=== PATIENT | male | born 2000 | race Caucasian/White ===

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

== ENCOUNTER → 2018-01-02 10:34 | Outpatient (CLI) | payer BC, SELFPAY ==
[2018-01-02 11:50] LABS: Anion Gap 5 (5-15); BUN 13 mg/dL (7-18); BUN/Creat Ratio 14.9 RATIO (10-20); Calcium,Total 8.7 mg/dL (8.5-10.1); Chloride 104 mmol/L (98-107); Cholesterol 138 mg/dL (200); Creatinine, Serum 0.87 mg/dL (0.70-1.30); EST Glomerular Filtration Rate 119 mL/min (>60); Est Glom Filt Rate - Afr Amer 144 mL/min (>60); Glucose 227 mg/dL (74-106); High Density Lipoprotein 53 mg/dL; Potassium 3.9 mmol/L (3.5-5.1); Sodium Level 137 mmol/L (136-145); Triglycerides 41 mg/dL; Very Low Density Lipoprotein 8 mg/dL (5-40)
== END ==
PROVIDERS: Family Provider Family Medicine; PCP Family Medicine; Referring Provider Family Medicine; Visit Provider Family Medicine
DX: E11.9 Type 2 diabetes mellitus without complications (principal)
CPT/HCPCS: 36415; 80048; 80061

== ENCOUNTER 2018-02-18 16:30 | Outpatient (RCR) | payer BC, SELFPAY | END 2018-02-18 23:59 | LOC: DC 16:30 | PROVIDERS: Family Provider Family Medicine; PCP Family Medicine; Visit Provider Family Medicine | DX: E11.9 Type 2 diabetes mellitus without complications (principal); Z71.3 Dietary counseling and surveillance | CPT/HCPCS: 97802; G0108 ==

== ENCOUNTER 2019-08-30 22:10 | Emergency (ER) | payer BC, SELFPAY ==
[2019-08-30 22:11] VITALS: BP 136/77; PULSE 97; RESP 16; TEMP 37.2; O2SAT 98; BMI 26.6
--- NOTE | 2019-08-30 22:33 | ED.DCSUM_ITS ---
- ER Visit Summary Date of Service: 08/30/19 Chief Complaint: Foot injury while playing basketball History of Present Illness: The patient is a 18 M has medical history of insulin-dependent diabetes. Patient states his pain vascular around 430 this afternoon. He was getting a rebound and came down landed on another player's foot. Then went to the ground. He was done playing at that time. He said he has trouble bearing weight on it. He is never had any significant injury to his foot or ankle. He is never had surgery. Denies any other injuries. Physical Examination: Young male no acute distress vital signs stable afebrile. H EENT exam unremarkable. Lungs are clear. Heart regular rhythm no murmur. Chest wall nontender. Abdomen soft nontender. Pelvic girdle intact. Patient is moving all 4 extremities. Neurovascularly intact. No gross bony deformities. Right hip, right knee and right ankle completely nontender nonswollen. Normal range of motion. Normal DP pulse. His right foot is mild swelling and tenderness to the distal third of the metatarsals. No gross bony deformity. He is able to wiggle his toes. Normal touch sensation. Skin is intact. Test Results: Foot x-ray 3 views read by myself fractures of the distal third of the second, third and fourth metatarsals. The third and fourth metatarsal fractures were displaced. I went over the x-ray with the patient. Emergency Department Course and Treatment: Patient has a right foot injury. Ice pack. He did not waiting for pain. Treatment Plan: Patient placed in a short leg well-padded Ortho-Glass posterior splint. No weightbearing. Tylenol Motrin for pain. Follow-up with Dr. Aristeo Bailon with podiatry. Disposition: Discharge Impression: Acute right foot second, third and fourth metatarsal fractures. Short leg posterior splint by ER This note was generated with [employer] dictation software. It may contain incorrect words, spelling, and punctuation that were not noted in review of the chart prior to signing ED Disposition - Plan for ED Patient: Referrals: Butch Macias MD [Primary Care Provider] -
--- NOTE | 2019-08-30 22:35 | RAD_ITS ---
STUDY: X-RAY - RIGHT FOOT CLINICAL: Male, 18 years old. BASKETBALL INJURY. PAIN ACROSS METATARSALS BOTH ANTERIORLY AND POSTERIORLY TECHNIQUE: 3 view(s) of the foot. COMPARISON: None. FINDINGS: Normal talus, calcaneus, and tarsal bones. Normal visualized subtalar, talonavicular, calcaneocuboid, tarsal and tarsometatarsal articulations. Fractures of the second third and fourth metatarsals with slight displacement. Normal metatarsophalangeal joint of the great toe. Normal tibial and fibular sesamoid bones. Normal interphalangeal joint of the great toe. Normal phalanges of the great toe. Normal second through fifth metatarsophalangeal joints. Normal interphalangeal joints and phalanges of the lesser toes. The soft tissue structures are unremarkable. RAD/Foot min 3 Views IMPRESSION: Fractures of the second third and fourth metatarsals Electronically Signed: Davian Merida MD at 23:24 EDT , Service support ,
--- NOTE | 2019-08-30 23:03 | ED.DEP ---
ED Disposition - Plan for ED Patient: Disposition: Home or Assisted Living Instructions: ED FOOT FRACTURE Referrals: Magen Bailon DPM [STAFF PHYSICIAN] - As soon as possible Additional Instructions: Ice and elevate your right foot to decrease pain and swelling. No weightbearing. Crutches. The splint that I placed will not hold your weight. Follow-up with the systems development manager Dr. Magen Bailon. Their office either tomorrow or Saturday and they will get you in this week. Tylenol and Motrin for pain. You have fractures of your second, third and fourth metatarsals of your right foot.
[2019-08-30 23:19] VITALS: RESP 16
== END 2019-08-30 23:30 | disposition home or self-care (01) ==
LOC: ED 23:21
PROVIDERS: Emergency Provider Emergency Medicine; PCP Family Medicine
DX: S92.321A Displaced fracture of second metatarsal bone, right foot, initial encounter for closed fracture (principal); S92.331A Displaced fracture of third metatarsal bone, right foot, initial encounter for closed fracture; S92.341A Displaced fracture of fourth metatarsal bone, right foot, initial encounter for closed fracture; X58.XXXA Exposure to other specified factors, initial encounter; Y93.67 Activity, basketball; Y92.9 Unspecified place or not applicable; Y99.8 Other external cause status; E11.9 Type 2 diabetes mellitus without complications; Z79.4 Long term (current) use of insulin
CPT/HCPCS: 29515; 73630; 99283

== ENCOUNTER → 2019-09-03 09:58 | Outpatient (CLI) | payer BC, SELFPAY ==
[2019-08-30 22:11] VITALS: BMI 26.6
[2019-09-03 12:47] LABS: Absolute Neutrophil Count 4.2 X10^3/uL (2.0-7.7); Basophil# 0.09 X10^3/uL; Basophil% 1.2 % (0-1); Eosinophil# 0.37 X10^3/uL; Eosinophils% 4.9 % (0-5); Hematocrit 44.3 % (40-54); Hemoglobin 15.1 g/dL (13.0-16.5); Lymphocyte % 27.7 % (19-41); Mean Corp Hgb Conc 34.1 g/dL (32-36); Mean Corpuscular Hgb 29.5 pg (27.0-32.0); Mean Corpuscular Volume 86.5 fL (80-94); Mean Platelet Vol. 10.6 fl (6.2-12.0); Monocyte% 10.6 % (0-10); NRBC Flagged by Analyzer 0 % (0-5); Neutrophil % 55.5 % (47-70); Platelet Count 269 K/mm3 (150-450); RBC Distribution Width CV 12.5 % (11.6-14.6); RBC Distribution Width SD 38.9 fl (35.1-43.9); Red Blood Count 5.12 M/mm3 (4.6-6.2); White Blood Count 7.6 K/mm3 (4.4-11.0)
[2019-09-03 12:49] LABS: Anion Gap 7 (5-15); BUN 13 mg/dL (7-18); BUN/Creat Ratio 11.8 RATIO (10-20); Calcium,Total 8.9 mg/dL (8.5-10.1); Chloride 104 mmol/L (98-107); EST Glomerular Filtration Rate 90 mL/min (>60); Est Glom Filt Rate - Afr Amer 109 mL/min (>60); Glucose 241 mg/dL (74-106); Potassium 4.4 mmol/L (3.5-5.1); Sodium Level 137 mmol/L (136-145)
[2019-09-03 13:21] LABS: Hemoglobin A1c 5.2 % (3.8-5.6)
== END ==
PROVIDERS: PCP Family Medicine; Referring Provider Family Medicine; Visit Provider Family Medicine
DX: Z00.00 Encounter for general adult medical examination without abnormal findings (principal)
CPT/HCPCS: 36415; 80048; 83036; 85025

== ENCOUNTER 2019-09-07 11:28 | Day surgery (SDC) | payer BC, SELFPAY ==
[2019-09-07] VITALS (7 sets, daily range): BP systolic 134–146; BP diastolic 66–90; PULSE 62–86; RESP 14–16; TEMP 36.3–37.3; O2SAT 96–100; BMI 26.4
[2019-09-07] MEDS: Lactated Ringers 1,000 ML 100 ML IV (12:18)
[2019-09-07 12:25] LABS: Bedside Glucose 165 mg/dL (70-110)
--- NOTE | 2019-09-07 12:58 | DCINST_ITS ---
Discharge Diet: Light diet - advance as tolerated Discharge Activity: May Not Drive Weight Bearing Status: No weight bearing - No weightbearing right foot Keep extremity elevated above heart level: Right Leg - Keep right foot elevated for at least 50 minutes of every hour using pillows Call your doctor if your incision/area has: Continuous Slow Oozing, Sudden Increased Bleeding, Foul Smelling Discharge Call your doctor if you observe: Fever of 101 or Higher, Shortness of breath, Chest pain, Calf discomfort, Uncontrolled pain Cleanse incision/area with: Do not get Incision Wet, Keep Dressing Clean & Dry Additional Instructions: Apply ice pack to foot 10-15 minutes 3-4 times a day Allergies/Adverse Reactions: Allergies No Known Allergies Allergy (Verified 09/04/19 10:05) Medications to take at Discharge Insulin Lispro [Humalog KwikPen] 8 unit SC 0700 insuln.pen 12/27/17 Insulin Lispro [Humalog KwikPen] 16 unit SQ BID@1100,1600 #1 insuln.pen 12/27/17 Insulin Glargine [Lantus SoloStar Pen] 15 units SUBCUT DAILY 08/30/19 Hydrocodone Bitart/Apap 5-325 [[place] 5MG-325MG] 1 - 2 tab PO Q6H PRN PRN 3 Days #25 tab 09/07/19 Ibuprofen 600 mg PO Q6H #40 tab 09/07/19 The following prescriptions were given: Ibuprofen 600 mg PO Q6H #40 tab Transmission Status: Received by [facility] Hydrocodone Bitart/Apap 5-325 [[place]wood 5MG-325MG] 1 - 2 tab PO Q6H PRN PRN 3 Days #25 tab PRN Reason: Pain Transmission Status: Received by [facility] Primary Care Physician: Butch Macias MD [Primary Care Provider] - Test Results: Test results from this visit will be discussed in further detail at your follow- up appointment, if applicable. Please Follow Up With: Magen Bailon DPM When: 1 week, call or follow up sooner if needed
--- NOTE | 2019-09-07 13:00 | RAD_ITS ---
STUDY: X-RAY - RIGHT FOOT CLINICAL: Male, 18 years old. ORIF 3rd and 4th metatarsals, 2 intraoperative images TECHNIQUE: 3 view(s) of the foot. COMPARISON: None. FINDINGS: 3 images were submitted for interpretation. Images were obtained during third and fourth metatarsal pinning. Final image shows anatomic alignment. RAD/Foot 2 Views IMPRESSION: Intraoperative images obtained for hardware localization. Electronically Signed: Janis Hill MD at 23:59 EDT Tel , Service support ,
[2019-09-07] MEDS: Cefazolin 2 GM in 0.9% Normal Saline 100 ML IV (13:21)
[2019-09-07] MEDS: Bupivacaine Mpf 0.5% 30 ML VIAL (14:14)
--- NOTE | 2019-09-07 14:36 | PCM.OPRPT ---
Report of Operation Date of Procedure: 09/07/19 Pre-Operative Diagnosis: 3rd and 4th metatarsal fractures, right foot Post-Operative Diagnosis: Same Surgery/Procedure Performed:: Open reduction internal fixation, right 3rd and 4th metatarsal fractures turbine inspector: Yvette Christensen Type of Anesthesia:: General Specimen's removed: None Estimated Blood Loss (mL): 5mL Description of Procedure: Indications: This is a 18 year old male with right 2nd, 3rd and 4th metatarsal fractures ~1 week ago while playing basketball, 3rd and 4th metatarsal fractures are displaced, 3rd is the worst. We discussed the options and patient elected to proceed with open reduction internal fixation of the 3rd and 4th metatarsal fractures. We discussed reduction and pin fixation in detail. This was discussed with imr in great detail. We discussed all of the possible benefits vs risks and potential complications. We discussed the goals and expectations, as well as estimated healing time - no weightbearing for 8 weeks, then protected weightbearing in [facility] [place] for another 4 weeks at least - could be longer and can take up to a year to heal, again risks were reviewed. He expressed understanding and agreement. All of his questions were answered. The consent forms were reviewed with him and he freely signed them. No guarantees were given. All questions were answered. Also of note patient's mother was present pre operatively when discussing with patient. Operative Procedure: The patient was brought back to the operating room and was placed on the operating room table in the supine position. He was carefully secured to the operating room table with a safely belt around her waist. The patient received 2 grams of intravenous cefazolin for antibiotic prophylaxis. A well padded pneumatic tourniquet was applied around the right ankle. The patient received general anesthesia per the anesthesia team. A time out was performed and the patient was proper identified and the surgical plan was confirmed - ORIF of the 3rd and 4th metatarsals. The right foot was scrubbed, prepped, draped in the usual aseptic fashion. A skin incision was made overlying the dorsal aspect of the 3rd intermetatarsal space. Careful blunt dissection was completed down to the 3rd metatarsal, and incision was made on the 3rd metatarsal. The fracture was visualized and it was noted it was not healed or united, it was displaced. The fracture was reduced back into proper alignment. The fracture was stabilized and fixated using 0.062 inch Kwire, percutaneous. The kwire was trimmed as it exited out of the plantar foot and the end was capped. An incision was made on the 4th metatarsal. The fracture was visualized and it was noted it was not healed or united, it was displaced. The fracture was reduced back into proper alignment. The fracture was stabilized and fixated using 0.062 inch Kwire, percutaneous. The kwire was trimmed as it exited out of the plantar foot and the end was capped. During this process the right ankle tourniquet was inflated to 250mmHg to allow for better visualization, the right foot was exsanguinated using an Esmarch bandage prior to inflating the tourniquet. At this time it was noted the fracture sites were reapproximated and rigidly fixated, there is good bone to bone contact. This was confirmed with intraoperative fluoroscopy. Visually there was excellent reduction of the fracture sites with good bone to bone contact and alignment. The sites were flushed with copious amounts of normal saline solution. All remaining tissues were healthy and viable. The subcutaneous tissue was reapproximated using 3-0 Vicryl and the skin was reapproximated using 4-0 Monocryl. Cavilon was painted to the skin incision and edges and allowed to dry, steristrips were placed across the sutured skin incision. 25mL of 0.5% Bupivacaine plain was given as a right foot 3rd and 4th ray block for pain control post operatively. It is important to note all vital structures including all vital neurovascular structures to the area were properly identified and retracted as necessary during the procedure. Intra operative fluoroscopy was used throughout the procedure as necessary to confirm proper reduction and fixation. A dressing was applied which consisted of betadine soaked adaptic, 4x4 gauze, kerlix and nuha bandage with overlying well padded below the knee posterior splint. The right ankle tourniquet was deflated and there was immediate return of warmth and perfusion to the foot with CFT < 2 seconds to all toes and normal temperature gradient. Hemostasis was achieved. Total tourniquet time was 37 minutes The patient tolerated the above operative procedure well and the anesthesia well with no complications. Post operative orders were placed. Post operative instructions were reviewed with the patient and his mother who was here with the patient today. He is to remain nonweightbearing to the right foot at all times. [place] 1-2 tabs PO q 6 hours was prescribed for post op pain control, along with Ibuprofen 600mg PO q 6 hours prn pain. He is to follow up with me in 1 week or sooner if needed. Also right foot xrays, 3 views, were obtained in the recovery room. These were reviewed. They showed s/p ORIF of the 3rd and 4th metatarsal in proper alignment and stable fixation. No complications seen. No acute findings otherwise. Grafts/Implants Used: None - Complications None
--- NOTE | 2019-09-07 14:45 | RAD_ITS ---
STUDY: X-RAY - RIGHT FOOT CLINICAL: Male, 18 years old. POST OP RIGHT FOOT TECHNIQUE: 3 view(s) of the foot. COMPARISON: Comparison is made with prior examination dated August 30, 2019. FINDINGS: The patient is status post fixation with pins of the fractures through the distal aspects of the third and fourth metatarsals. Transverse fracture of the second metatarsal. RAD/Foot min 3 Views IMPRESSION: Satisfactory pinning of the third and fourth metatarsal fractures. Electronically Signed: Donald Nair, at 15:28 EDT , Service support ,
[2019-09-07 15:01] LABS: Bedside Glucose 113 mg/dL (70-110)
[2019-09-07] MEDS: HYDROcodone Bitartrate/Apap 5/325 Tablet PO (15:43)
[2019-09-07] MEDS: Ibuprofen 600 MG Tablet PO (15:49)
== END 2019-09-07 16:59 | disposition home or self-care (01) ==
LOC: SDC 11:30 → AC 11:31
PROVIDERS: PCP Family Medicine; Referring Provider Podiatrist; Visit Provider Podiatrist
PROC: (CPT 28485; principal; 2019-09-07 12:45)
DX: S92.331A Displaced fracture of third metatarsal bone, right foot, initial encounter for closed fracture (principal); S92.341A Displaced fracture of fourth metatarsal bone, right foot, initial encounter for closed fracture; X58.XXXA Exposure to other specified factors, initial encounter; Y93.67 Activity, basketball; Y92.9 Unspecified place or not applicable; Y99.8 Other external cause status; E11.9 Type 2 diabetes mellitus without complications; Z79.4 Long term (current) use of insulin; Z11.59 Encounter for screening for other viral diseases
CPT/HCPCS: 28485 ×2; 73620; 73630; 76000; 82962; 87635; G2023; J7120; J2405; U0004